=== PATIENT | male | born 2000 | race Two or more races ===

== ENCOUNTER 2023-11-15 06:06 | Inpatient (IN) | payer MEDICAID ==
[~2023-11-15] VITALS: Ht 182.9 cm; Wt 109.8 kg
[2023-11-15] MEDS: LORazepam 2MG/ML-1ML VIAL IV SCH ×3 (07:00→10:00)
[2023-11-15 07:12] LABS: Basophils # (auto) 0.1 10 ^3/uL (0-0.2); Basophils % (auto) 0.5 % (0.0-2.0); Eosinophils # (auto) 0 10 ^3/uL (0-0.8); Eosinophils % (auto) 0.1 % (0.0-7.0); Hematocrit 48.8 % (41.0-53.0); Hemoglobin 16.7 g/dL (13.5-17.5); Lymphocytes # (auto) 2.8 10 ^3/uL (0.4-5.4); Lymphocytes % (auto) 12.8 % (10.0-50.0); Mean Corpuscular Hemoglobin 33.7 pg (28.0-32.0); Mean Corpuscular Hgb Conc. 34.2 g/dL (32.0-36.0); Mean Corpuscular Volume 98.5 fL (80.0-100.0); Monocytes % (auto) 4.6 % (0.0-12.0); Neutrophils # (auto) 17.8 10 ^3/uL (1.6-8.6); Nucleated Red Blood Cells % 0.1 %; Red Blood Cells 4.96 10^6/uL (4.5-5.90); Red Cell Distribution Width 14.2 % (11.8-14.3); White Blood Cell 21.7 10^3/uL (4.4-10.8)
[2023-11-15 07:33] LABS: Alanine Aminotransferase 57 U/L (7-40); Alkaline Phosphatase 93 U/L (46-116); Anion Gap 18 (5-15); Aspartate Aminotransferase 124 U/L (13-40); BUN/Creatinine Ratio 7.5 (10.0-20.0); Bilirubin, Total 6.1 mg/dL (0.2-1.0); Blood Alcohol 3.3 mg/dL (<10); Blood Urea Nitrogen 6 mg/dL (9-23); Calcium 9.9 mg/dL (8.5-10.1); Carbon Dioxide 23 mmol/L (20-30); Chloride 100 mmol/L (98-107); Glucose 164 mg/dL (74-106); Potassium 3.1 mmol/L (3.5-5.1); Sodium 141 mmol/L (136-145); Total Protein 8.3 g/dL (5.7-8.2)
[2023-11-15 07:47] LABS: Magnesium 1.3 mg/dL (1.6-2.6)
[2023-11-15] MEDS: FOLIC ACID 1 MG, MULTIPLE VITAMIN 10 ML, MAGNESIUM SULF SDV 50% 8 MEQ, THIAMINE INJ 100... INJ SCH (08:11)
[2023-11-15 08:18] VITALS: PULSE 121; RESP 17; O2SAT 98
[2023-11-15] MEDS: POTASSIUM CHL 20 Meq TABLET PO ONE (08:54)
[2023-11-15] MEDS ORDERED: LORazepam 2MG/ML-1ML VIAL IV PRN (09:45)
[2023-11-15] MEDS ORDERED: LORazepam 2MG/ML-1ML VIAL IV SCH ×4 (09:45)
[2023-11-15] MEDS: LACTATED RINGER'S 1,000 ML IV ONE (09:45)
[2023-11-15] MEDS ORDERED: chlordiazePOXIDE HCL 25 MG CAP PO SCH (09:45)
[2023-11-15] MEDS ORDERED: LORazepam 0.5 MG TAB PO PRN (09:45)
[2023-11-15] MEDS: MAGNESIUM SULFATE 1GM/100ML 100 ML IV SCH (09:46)
[2023-11-15] MEDS: ENOXAPARIN SOD 40 MG/0.4 ML SYRINGE SC SCH (10:00)
[2023-11-15] MEDS: IOHEXOL 300 MG/ML 100ML BOTTLE IJ ONE (12:17)
[2023-11-15] MEDS: ONDANSETRON HCL 4 MG/2 ML VIAL IV PRN (13:20)
[2023-11-15] MEDS: SODIUM CHLOR 0.9% PF (SALINE LOCK) 10ML VIAL/SYR IV SCH (14:03)
[2023-11-15 19:34] VITALS: PULSE 120; RESP 18; O2SAT 95
[2023-11-15] MEDS: PANTOPRAZOLE 40 MG/10 ML VIAL INJ IV ONE (19:53)
[2023-11-16 05:29] LABS: Basophils # (auto) 0.1 10 ^3/uL (0-0.2); Basophils % (auto) 0.5 % (0.0-2.0); Eosinophils # (auto) 0.2 10 ^3/uL (0-0.8); Eosinophils % (auto) 1.6 % (0.0-7.0); Hematocrit 42.1 % (41.0-53.0); Hemoglobin 14.3 g/dL (13.5-17.5); Lymphocytes # (auto) 1.8 10 ^3/uL (0.4-5.4); Lymphocytes % (auto) 15.2 % (10.0-50.0); Mean Corpuscular Hemoglobin 33.9 pg (28.0-32.0); Mean Corpuscular Volume 99.7 fL (80.0-100.0); Monocytes # (auto) 0.5 10 ^3/uL (0-1.3); Monocytes % (auto) 4.4 % (0.0-12.0); Neutrophils # (auto) 9.4 10 ^3/uL (1.6-8.6); Neutrophils % (auto) 78.3 % (37.0-80.0); Nucleated Red Blood Cells % 0.1 %; Red Blood Cells 4.23 10^6/uL (4.5-5.90); Red Cell Distribution Width 14.2 % (11.8-14.3)
[2023-11-16 05:44] LABS: Alanine Aminotransferase 36 U/L (7-40); Alkaline Phosphatase 67 U/L (46-116); Anion Gap 7 (5-15); Aspartate Aminotransferase 70 U/L (13-40); Bilirubin, Total 8.5 mg/dL (0.2-1.0); Calcium 8.4 mg/dL (8.7-10.4); Carbon Dioxide 25 mmol/L (20-30); Chloride 106 mmol/L (98-107); Glucose 100 mg/dL (74-106); Potassium 3.3 mmol/L (3.5-5.1); Sodium 138 mmol/L (136-145); Total Protein 6.8 g/dL (5.7-8.2)
[2023-11-16 06:13] LABS: BUN/Creatinine Ratio 8.9 (10.0-20.0); Blood Urea Nitrogen < 5 mg/dL (9-23)
[2023-11-16 08:00] VITALS: PULSE 116; RESP 20; O2SAT 95
[2023-11-16 08:08] LABS: Amphetamine Screen, Urine Neg (NEGATIVE)
[2023-11-16 08:09] LABS: Barbiturate Scree,Urine Neg (NEGATIVE); Benzodiazephine Screen, Urine Neg (NEGATIVE); Cannabinoid Screen, Urine Pos (NEGATIVE); Cocaine Screen, Urine Neg (NEGATIVE); Opiate Scree,Urine Neg (NEGATIVE); Phencyclidine Screen, Urine Neg (NEGATIVE)
[2023-11-16] MEDS: PANTOPRAZOLE 40 MG/10 ML VIAL INJ IV SCH ×2 (08:22→21:03)
[2023-11-16 09:30] VITALS: BP 137/52; PULSE 100; PULSE 68; RESP 20; TEMP 97.6; O2SAT 96
[2023-11-16] MEDS ORDERED: chlordiazePOXIDE HCL 25 MG CAP PO SCH (10:00)
[2023-11-16] MEDS: POTASSIUM EFFERVESENT TAB 25 MEQ PO ONE (11:41)
[2023-11-16] MEDS: chlordiazePOXIDE HCL 25 MG CAP PO SCH (11:41)
[2023-11-16] MEDS: ACETAMINOPHEN 325 MG TAB PO PRN (11:42)
[2023-11-16] MEDS: LORazepam 2MG/ML-1ML VIAL IV PRN (11:44)
[2023-11-16] MEDS: PANTOPRAZOLE 40 MG/10 ML VIAL INJ IV ONE (11:50)
[2023-11-16 12:30] VITALS: BP 124/83; PULSE 98; RESP 18; TEMP 97.9; O2SAT 98
[2023-11-16 16:31] VITALS: BP 118/83; PULSE 98; RESP 17; TEMP 98.4; O2SAT 97
[2023-11-16 18:54] VITALS: PULSE 110
[2023-11-16 20:00] VITALS: PULSE 108; RESP 20; O2SAT 92
[2023-11-17] MEDS ORDERED: chlordiazePOXIDE HCL 25 MG CAP PO SCH (10:00)
[2023-11-18] MEDS ORDERED: chlordiazePOXIDE HCL 25 MG CAP PO SCH (07:00)
== END 2023-11-16 22:50 | disposition left against medical advice (07) ==
LOC: ER 06:06 → OVERFLOW 08:40 → TELE 09:38 → TELE-WESTW 11-16 11:24
PROVIDERS: ADMIT Internal Medicine; ATTEND Internal Medicine
DX: K76.0 Fatty (change of) liver, not elsewhere classified (principal); F10.231 Alcohol dependence with withdrawal delirium; K92.0 Hematemesis; K76.9 Liver disease, unspecified; R25.1 Tremor, unspecified; E87.6 Hypokalemia; E83.42 Hypomagnesemia; Z71.41 Alcohol abuse counseling and surveillance of alcoholic
CPT/HCPCS: 36415; 71260; 76705; 80053; 80307; 80320; 82105; 83735; 84484; 85025; 86703; 86803; 87340; 93005; 96365; 96375; 99291; C9113; G0378; J2405